=== PATIENT | female | born 1990 | race Caucasian/White ===

== ENCOUNTER 2017-10-10 16:27 | Emergency (ER) | payer OTHER ==
[2017-10-10 16:31] VITALS: TEMP 36.2
--- NOTE | 2017-10-10 17:20 | DIAGNOSTIC IMAGING REPORT ---
L FOOT MIN 3 VIEWS ROUTINE, L ANKLE MIN 3 VIEWS ROUTINE HISTORY: 27 years-old Female left ankle/foot pain and injury acute left foot and ankle pain COMPARISON: Left foot and ankle radiographs 07/07/2014 TECHNIQUE: 3 views of the left foot and 3 views of the left ankle FINDINGS: FOOT: Bipartite medial hallux sesamoid. No acute fracture, dislocation or significant degenerative changes are identified. No opaque foreign body. ANKLE: No osteochondral defect of the talar dome. No acute fracture, dislocation or significant degenerative changes. Soft tissues are within normal limits without opaque foreign body. IMPRESSION: No acute fracture. The above report was generated using voice recognition software. It may contain grammatical, syntax or spelling errors. Electronically signed by: Harley Pretty M.D. 10/10/2017 5:19 PM Dictated Date/Time: 10/10/2017 5:17 PM
--- NOTE | 2017-10-10 18:00 | EMERGENCY ROOM VISIT NOTE ---
History First contact with patient: 16:33 Chief Complaint: FOOT PAIN Stated Complaint: LEFT FOOT PAIN History of Present Illness The patient is a 27 year old female who presents to the Emergency Room with complaints of an injury to her left ankle/foot. The patient reports that she missed a step while walking this afternoon and twisted her left ankle. She reports pain from the ankle into the foot. The pain is worsened with weightbearing. She reports the pain is a 3/10 at rest and increases to a 10/10 with weightbearing. She denies any numbness or weakness. She has not applied ice or taken any medications for her symptoms. She denies any prior injuries to the ankle. She denies any other injuries. Review of Systems A complete 6 point review of systems was reviewed with the patient with pertinent positives and negatives as per history of present illness. All else were negative. Past Medical/Surgical History Medical Problems: (1) labor (2) Uterine contractions at greater than 20 weeks of gestation Social History Smoking Status: Never Smoker Marital Status: Housing Status: lives with family Occupation Status: employed Current/Historical Medications No Active Prescriptions or Reported Meds Physical Exam Vital Signs Date Time Temp Pulse Resp B/P (MAP) Pulse Ox O2 Delivery O2 Flow Rate FiO2 10/10/17 18:20 78 20 121/67 98 18 16:31 36.2 84 20 115/70 98 Room Air Physical Exam VITALS: Vitals are noted on the nurse's note and reviewed by myself. Vital signs stable. GENERAL: This is a 27-year-old female, in no acute distress, nondiaphoretic, well-developed well-nourished. SKIN: No significant ecchymosis, lacerations or abrasions. MUSCULOSKELETAL: There is mild soft tissue swelling to the lateral left ankle. Tenderness to palpation over the lateral malleolus and the proximal aspect of the left foot. Full range of motion. NEURO: Patient was alert and oriented to person place and time. Distal sensation intact. Medical Decision & Procedures ER Provider Diagnostic Interpretation: L FOOT MIN 3 VIEWS ROUTINE, L ANKLE MIN 3 VIEWS ROUTINE FINDINGS: FOOT: Bipartite medial hallux sesamoid. No acute fracture, dislocation or significant degenerative changes are identified. No opaque foreign body. ANKLE: No osteochondral defect of the talar dome. No acute fracture, dislocation or significant degenerative changes. Soft tissues are within normal limits without opaque foreign body. IMPRESSION: No acute fracture. Medical Decision Differential diagnosis includes fracture, sprain, contusion, dislocation, among others. The patient was evaluated as above. X-ray of the left ankle and foot were obtained and read by radiology with no acute fractures. Patient was ordered a gel ankle splint and crutches, but declined both of these. Conservative measures were discussed with the patient and she was advised to follow-up with her own orthopedist if she has persistent or worsening symptoms. She verbalized understanding of my assessment and treatment plan and was discharged home in good condition. Medication Reconcilliation Current Medication List: was personally reviewed by me Blood Pressure Screening Patient's blood pressure: Normal blood pressure Impression Primary Impression: Left ankle sprain Departure Information Dispostion Home / Self-Care Condition GOOD Prescriptions No Active Prescriptions or Reported Meds Referrals No Doctor, Assigned (PCP) Gumaro Oscar D.O. Patient Instructions My [facility] Additional Instructions You have been treated in the Emergency Department for a foot/ankle injury. For pain control, you can use the following [id number] medicines (if >12 yo): - Regular strength (325mg/tab) Tylenol (acetaminophen) 2 tabs every 4-6 hours as needed. Do not exceed 12 tablets in a 24 hour period. Avoid taking more than 4 grams (4000 mg) of Tylenol per day. This includes any other sources of acetaminophen you may take on a regular basis. - Regular strength (200 mg/tab) Advil (ibuprofen) 1-2 tabs every 4-6 hours as needed. Do not exceed a dose of 3200 mg per day. If this is a recent injury (<24 hrs), ice can be applied to the area of pain for the first 3 days to help decrease pain and inflammation. Elevate the leg to help reduce swelling. Where the gel splint and use the crutches for the next 3-4 days or until you are able to bear weight without any pain. If you have persistent difficulty walking or pain, make sure to follow-up with orthopedics for further evaluation. Return to the Emergency Department if your current symptoms worsen despite treatment course outlined above, or if you develop any of the following symptoms : intractable pain despite aforementioned treatment course or new onset of numbness or tingling of the foot. Problem Qualifiers Primary Impression: Left ankle sprain Encounter type: initial encounter Involved ligament of ankle: unspecified ligament Qualified Codes: S93.402A - Sprain of unspecified ligament of left ankle, initial encounter
[2017-10-10 18:20] VITALS: BP 121/67; PULSE 78; O2SAT 98
== END 2017-10-10 18:20 | disposition home or self-care (01) ==
LOC: C.EDB 16:27 → C.EDD 18:20
DX: S93.402A Sprain of unspecified ligament of left ankle, initial encounter (principal); M79.672 Pain in left foot; X50.9XXA Other and unspecified overexertion or strenuous movements or postures, initial encounter; Y93.01 Activity, walking, marching and hiking